=== PATIENT | female | born 1995 | race Caucasian/White ===

== ENCOUNTER 2017-05-11 06:24 | Emergency (ER) | payer MEDICAID ==
[~2017-05-11] VITALS: Ht 154.9 cm; Wt 76.7 kg
[2017-05-11 06:31] VITALS: Ht 154.9 cm; Wt 76.7 kg
[2017-05-11 07:17] VITALS: BP 115/75
== END 2017-05-11 07:17 | disposition home or self-care (01) ==
LOC: ED 06:24
DX: J45.901 Unspecified asthma with (acute) exacerbation (principal)
CPT/HCPCS: J7613; J7644